=== PATIENT | female | born 1995 | race Caucasian/White ===

== ENCOUNTER 2023-12-14 12:11 | Outpatient (CLI) | payer OTHER, SELFPAY ==
[2023-12-14 12:52] LABS: Basophils Percent Auto 0.5 % (0.2-1.2); Eosinophils Absolute Auto 0.4 K/mm3 (0-0.3); Eosinophils Percent Auto 4.1 % (0-4.4); Hematocrit 36.5 % (37.0-47.0); Hemoglobin 11.3 g/dL (12.0-15.0); Immature Granulocyte Absolute 0.03 K/mm3 (0.00-0.031); Immature Granulocyte Percent A 0.3 % (0-0.5); Lymphocytes Absolute Auto 2.89 K/mm3 (0.9-3.2); Lymphocytes Percent Auto 32.8 % (18.3-44.2); Mean Corpuscular Hemoglobin 26.8 pg (26-34); Mean Corpuscular Volume 86.7 fl (80-100); Mean Platelet Volume 10.6 fl (7.4-10.4); Monocytes Absolute Auto 0.5 K/mm3 (0.1-0.6); Monocytes Percent Auto 5.3 % (2.6-8.5); Platelet Count Result 296 k/mm3 (150-375); Red Blood Count 4.21 M/mm3 (4.2-5.4); Red Cell Distribution Width 13.2 % (11.5-14.5); White Blood Count 8.8 K/mm3 (4.5-10.0)
[2023-12-14 14:59] LABS: Iron 40 ug/dL (37-170)
[2023-12-14 15:15] LABS: Percent Iron Saturation 14 % (20-50)
== END 2023-12-14 12:12 | disposition home or self-care (01) ==
LOC: ANHLAB 12:14
PROVIDERS: Visit Provider Obstetrics & Gynecology
DX: N92.0 Excessive and frequent menstruation with regular cycle (principal)
CPT/HCPCS: 36415; 82728; 83540; 83550; 84443; 85025

== ENCOUNTER 2024-08-14 09:59 | Outpatient (CLI) | payer OTHER, SELFPAY ==
[2024-08-14 10:37] LABS: Hematocrit 35.7 % (37.0-47.0); Hemoglobin 11.7 g/dL (12.0-15.0); Mean Corpuscular HGB Conc 32.8 g/dl (32-36); Mean Corpuscular Hemoglobin 27.9 pg (26-34); Mean Platelet Volume 10.6 fl (7.4-10.4); Platelet Count Result 300 k/mm3 (150-375); Red Cell Distribution Width 12.7 % (11.5-14.5); White Blood Count 9.9 K/mm3 (4.5-10.0)
[2024-08-14 10:52] LABS: Alanine Aminotransferase 17 U/L (6-35); Albumin Level 4.5 g/dL (3.5-5.1); Alkaline Phosphatase 65 U/L (38-126); Anion Gap 8 mmol/L (4-12); Aspartate Amino Transferase 29 U/L (14-36); Bilirubin,Total 0.4 mg/dL (0.2-1.3); Blood Urea Nitrogen 11 mg/dL (7-17); Calcium 9.2 mg/dL (8.4-10.2); Carbon Dioxide 29 mmol/L (22-30); Chloride 101 mmol/L (98-107); Cholesterol 210 mg/dL (0-200); Estimated Glomerular Filt Rate > 60; Glucose 90 mg/dL (65-110); HDL Direct 51 mg/dL; Potassium 3.9 mmol/L (3.4-5.0); Sodium 138 mmol/L (137-145); Triglycerides 149 mg/dL (<150)
[2024-08-14 11:03] LABS: LDL Cholesterol Direct 122 mg/dL
[2024-08-14 11:06] LABS: Iron 52 ug/dL (37-170)
[2024-08-14 11:18] LABS: Percent Iron Saturation 18 % (20-50)
[2024-08-14 11:38] LABS: Vitamin D 25 Hydroxy 27.2 ng/mL
[2024-08-14 13:04] LABS: Free T4 Free Thyroxine 0.92 ng/mL (0.78-2.19)
== END 2024-08-14 10:00 | disposition home or self-care (01) ==
PROVIDERS: PCP Nurse Practitioner Family; Visit Provider Nurse Practitioner Family
DX: N92.0 Excessive and frequent menstruation with regular cycle (principal); E66.9 Obesity, unspecified; E88.810 Metabolic syndrome; D64.9 Anemia, unspecified; E53.9 Vitamin B deficiency, unspecified; E55.9 Vitamin D deficiency, unspecified
CPT/HCPCS: 36415; 80053; 80061; 82306; 82607; 82728; 83540; 83550; 84439; 84443; 85025

== ENCOUNTER 2024-12-29 07:16 | Outpatient (CLI) | payer OTHER, SELFPAY ==
--- OUTSIDE RECORDS SUMMARY | 2024-12-29 07:19 | XMS_ITS | Referral Summary ---
[facility] Address [address] [place] [address] Care Team Providers Care Bench Worker Hollow Handle Name Role Phone Lou Ian Burt MD Primary Care Provider [phone] Patricio Saini MD Unavailable [phone] Allergies No known active allergies Medications No known medications Active Problems Problem Noted Date Diagnosed Date BMI 40.0-44.9, adult 07/04/2017 Social History Tobacco Use Types Packs/Day Years Used Date Smoking Tobacco: Never Smokeless Tobacco: Never Tobacco Cessation:Counseling Given: Not Answered Alcohol Use Standard Drinks/Week Comments No 0 (1 standard drink = 0.6 oz pur e alcohol) PHQ-2 Answer Date Recorded PHQ-2 Total Score (If total score is 3 or more points, staff should administer the PHQ-9) 0 05/10/2022 Personal Safety Answer Date Recorded Getting School Help Needed Not on file 01/27 Comments No Sex and Gender Information Value Date Recorded Sex Assigned at Not on file 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 Gender Identity Female 05/17/2019 10:27 PM CDT Sexual Orientation Straight 05/17/2019 10 :27 PM CDT Last Filed Vital Signs Vital Sign Reading Time Taken Comments Blood Pressure 126/74 02/13/2023 7:46 PM CDT Pulse 84 02/13/2023 7:46 PM CDT Temperature 37.1 C (98.8 F) 02/13/2023 7:46 PM CDT Respiratory Rate 20 02/13/2023 7:46 PM CDT Oxygen Saturation 98% 02/13/2023 7:46 PM CDT Inhaled Oxygen Concentration - - Weight 119.9 kg (264 lb 6.4 oz) 02/13/2023 7:46 PM CDT Height 165.1 cm (5' 5 ) 02/13/2023 7:46 PM CDT Body Mass Index 44 02/13/2023 7:46 PM CDT Plan of Treatment Not on file Procedures Procedure Name Priority Date/Time Associated Diagnosis Comments PAP WITH REFLEX TO HIGH RISK HPV Routine 05/10/2022 11:38 AM CDT Well woman exam from Last 3 Months or Most Recently Relevant to Health Maintenance Results * Pap with reflex to High Risk HPV (05/10/2022 11:38 AM CDT) Thin prep (Pap test) 05/10/2022 11:38 AM CDT 05/11/2022 11:38 AM CDT Narrative PATHOLOGY CH - 05/13/2022 2:19 PM CDT [facility] [address] [place] [address] Final Report Note to Patients: This report may contain a detailed description of human tissue sent by a health care provider to the laboratory for pathologic evaluation. The content of this report is essential for diagnosis and may provide important critical findings. This information may be unfamiliar to patients to review without a medical professional present. It is advised that the patient review this report in the presence of a health care provider who can answer questions and explain the details. Patient Name: THUAN RAYMUNDO Address: [address] [place] [address] Gender: F : 1995 (Age: 26) Service: Laboratory Location: Lab [facility] #: [id number] Patient Type: Ref Lab Taken: 05/10/2022 Received: 05/11/2022 Accessioned:: 05/12/2022 Reported: 05/13/2022 Physician(s): JAH Llamas NP Diagnosis: Source of Specimen: Imaged Thinprep Pap Test w/ Reflex HPV - Home Theatre Technician Cytologic Material Specimen Adequacy: - Specimen satisfactory for interpretation; endocervical/transformation zone component absent or insufficient General Category: - Negative for intraepithelial lesion or malignancy CHANDANA Rey(ASCP) Report Electronically Reviewed and Signed Out By CHANDANA Rey(ASCP) 05/13/2022 14:19:08Specimen(s) Received: A: Imaged Thinprep Pap Test w/ Reflex HPV - Home Theatre Technician Cytologic Material Clinical History: The Pap test is a screening test used to aid in the detection of cervical cancer and its precursors. It should not be the sole means by which malignant and premalignant lesions are diagnosed. Both false negative and false positive results may occur. It also has poor sensitivity for the detection of endometrial lesions and should not be used to evaluate suspected endometrial abnormalities. For these reasons it is most important to obtain Pap tests at regular intervals. The performance characteristics of some immunohistochemical stains, fluorescence in-situ hybridization tests and immunophenotyping by flow cytometry cited in this report (if any) were determined by the Surgical Pathology Department at [facility] as part of an ongoing chemistry quality control analyst program and in compliance with federally mandated regulations drawn from the Clinical Laboratory Improvement Act of 1988 (CLIA '88). Some of these tests rely on the use of analyte specific reagents and are subject to specific labeling requirements by the US Food and Drug Administration. Such diagnostic tests may only be performed in a facility that is certified by the Department of Health and Human Services as a high complexity laboratory under CLIA '88. The FDA has determined that such clearance or approval is not necessary. This test is used for clinical purposes. It should not be regarded as investigational or for research. Nevertheless, federal rules concerning the medical use of analyte specific reagents require that the following disclaimer be attached to the report: This test was developed and its performance characteristics determined by the Surgical Pathology Department [facility]. It has not been cleared or approved by the U. S. Food and Drug Administration. Ana Saavedra NP LAB CYTOLOGY ORDERABLES F inal Result PATHOLOGY [address] [place] [address] from Last 3 Months or Most Recently Relevant to Health Maintenance Insurance [employer] Address: [facility] [id number] [place] [address] [employer] Address: [address] [place] [address] [employer] Address: [facility] [address] [place] [address] Care Teams Bench Worker Hollow Handle Relationship Specialty Start Date End Date Ian Blake MD [address] [place] [address] PCP - General Internal Medicine 03/16/18 Patricio Saini MD [address] [facility] [address] [place] [address] Financial Sales Consultant Obstetrics and Gynecology 05/18/19
--- OUTSIDE RECORDS SUMMARY | 2024-12-29 07:20 | XMS_ITS | Clinical Summary ---
Author Organization [facility] Address [address] [place] [address] Care Team Providers Care Supervisor Dumping Name Role Phone Lou Ian Burt MD Primary Care Provider [phone] Patricio Saini MD Unavailable [phone] Allergies No known active allergies Medications No known medications Active Problems Problem Noted Date Diagnosed Date BMI 40.0-44.9, adult 07/04/2017 Surgical History Surgery Date Site/Laterality Comments OTHER SURGICAL HISTORY 2013 T & A Family History Medical History Relation Name Comments Thyroid disease Mother Thyroid dise ase; Diabetes Paternal Grandfather Diabete s mellitus; Ovarian cancer Paternal Grandmother Cance r, ovarian; Relation Name Status Comments Mother Paternal Grandfather Paternal Grandmother Alive Social History Tobacco Use Types Packs/Day Years [...] on file 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 Gender Identity Female 05/17/2019 10:27 PM CDT Sexual Orientation Straight 05/17/2019 10 :27 PM CDT Obstetrics History Para Term AB IAB SAB Ectopic Multiple Livin g Live Births 0 0 0 0 0 0 0 0 0 0 0 Last Filed Vital Signs Vital Sign Reading [...] 02/13/2023 7:46 PM CDT Plan of Treatment Health Maintenance Due Date Last Done Comments Hepatitis C Screening 1995 DTaP/Tdap/Td Vaccine (7 - Td or Tdap) 02/11/2016 02/10/2006, 05/19/1999, 09/08/1995, Additional history exists Cervical Cancer Screening 05/10/2023 05/10/2022, Depression Screening 05/10/2023 05/10/2022, 04/02/2021, 12/16/2017 Regular Well Visit/Exam 18-64 05/10/2023 05/10/2022, 04/02/2021, 05/18/2019 Influenza Vaccine (#1) 2024 08/07/2018, 2016 Varicella Vaccines Completed 06/09/2007, 06/11/1996 HPV Vaccines Completed 04/22/2010, 12/2008, 04/24/2008 Pneumococcal vaccine <65 Aged Out No longer eligible based on patient's age to complete this topic Procedures Procedure Name Priority Date/Time Associated Diagnosis [...] PATHOLOGY CH - 05/13/2022 2:19 PM CDT [facility] Department of Pathology [address] [place], [place] [id number] Final Report Note to Patients: This report [...] the details. Patient Name: THUAN RAYMUNDO Address: [address] [place] [address] Gender: F : 1995 (Age: 26) Service: Laboratory Location: Lab Hospital #: [id number] Patient Type: [facility] Lab Taken: 05/10/2022 Received: 05/11/2022 Accessioned:: 05/12/2022 Reported: 05/13/2022 Physician(s): JAH Llamas NP Diagnosis: Source of Specimen: Imaged Thinprep Pap Test w/ Reflex HPV - Animal Ride Manager Cytologic Material Specimen Adequacy: - Specimen satisfactory for interpretation; endocervical/transformation zone component absent or insufficient General Category: - Negative for intraepithelial lesion or malignancy CHANDANA Rey(ASCP) Report Electronically Reviewed and Signed Out By CHANDANA Rey(ASCP) 05/13/2022 14:19:08Specimen(s) Received: A: Imaged Thinprep Pap Test w/ Reflex HPV - Animal Ride Manager Cytologic Material Clinical History: The Pap test [...] determined by the Surgical Pathology Department at [facility] as part of an ongoing quality audit representative program and in compliance with federally mandated [...] characteristics determined by the Surgical Pathology Department [facility]. It has not been cleared or approved by the U. S. Food and Drug Administration. Ana Saavedra DIRECTOR OF REGIONAL SALES LAB CYTOLOGY ORDERABLES F inal Result PATHOLOGY [address] [place] [address] from Last 3 Months or Most Recently Relevant to Health Maintenance Insurance [facility] [employer] Address: [facility] [address] [place] [address] [facility] CHOICE PLUS [employer] Address: [facility] [id number] [place] [address] [employer] Address: [address] [place] [address] Care Teams Supervisor Dumping Relationship Specialty Start Date End Date Ian Blake MD [address] [place] [address] PCP - General Internal Medicine 03/16/18 Patricio Saini MD [address] [place] [address] [address] [place] [address] Oysterman Obstetrics and Gynecology 05/18/19
--- OUTSIDE RECORDS SUMMARY | 2024-12-29 07:20 | XMS_ITS | Continuity of Care Document ---
Author Organization [facility] Address [address] [place] [address] [place] [address] Phone Care Team Providers Care Mixer Slagman Name Role Phone Zen Cancino MD Unavailable Unavailable Allergies, Adverse Reactions, Alerts Substance Reaction Status Criticality No Known Allergies Active No Inform ation Medications Medication Instructions Dosage Effective Dates (start - stop) Status Comments olopatadine 0.1 % eye drops instill 1 drop by ophthalmic route 2 times every day into both eyes 1 drop - No Longer Active visine BUCCAL ADH. PATCH take one tablet daily - No Longer Active Procedures Procedure Date No Charge Optomap Fundus Photos 020 No Charge Refraction Eye Exam & Treatment Office/outpatient Visit, Est Office/outpatient Visit, Est Office/outpatient Visit, New Advance Directives Directive Yes / No Effective Date File Name No Information Encounters Encounter Description Practice Location Reason(s) For Visit Diagnoses Date Provider Providers Copied on Encounter [facility], [address] [place] [address] [address], [place], [place], [id number], [place] tel:[phone] SEC Bala GARAY Professional Complete Exam (chief complaint) Allergic conjunctivitis of both eyesCorneal neovasculariza tion of left eyeWears contact lenses 0 Barak Z[address]divar. [address], [address], [place], [place], [address], [place]. tel:[phone] Referring Provider: Zen Howe, [address], [place], [address] . tel:[phone] [place] [facility] [address] [place] [address] [address], [place], [place], [id number], tel:[phone] SEC Bala GARAY Professional 1.5 month GPC f/u (chief complaint) GPC (giant papillary conjunctivitis ) 9 Bar[address] Z[address]divar. [address], [address], [place], [place], [address], [place]. tel:[phone] Referring Provider: Zen Howe, [address] [facility] [address], [place], [address] . tel:[phone] Office/[place]pa [place]ient Visit, [facility] [address] [place] [address] [address], [place], [place], [address], tel:[phone] SEC Bala GARAY Professional Follow up visit (chief complaint) GPC (giant papillary conjunctivitis )Allergic conjunctivitis of both eyes 9 Barak Z[address]divar. [address] [employer], [facility] [place], [address], [place]. tel:[phone] Referring Provider: Zen Howe, [address] [facility], [place], [address] . tel:[phone] Office/outpa tient Visit, [facility], [address] [place] [address] [address], [place], [place], [address], [place] tel:[phone] SEC Bala [place] Professional Red, irritated eyes (chief complaint) Wears contact lensesCorneal neovasculariza tion of both eyesGPC (giant papillary conjunctivitis )Allergic conjunctivitis of both eyesPunctate keratitis, left eye 9 Bar[address] Z[address]divar. [address], [address] [place], [address], [place]. tel:[phone] Referring Provider: Zen Howe, [address] [facility] [address], [place], [address] . tel:[phone] Family History Family Member Type Diagnosis Age At Onset No Information Payers Payer name Insurance type Covered constitution party ID Christie espinoza(mati DAVIS [id number] Social History Type Description Quantity Date Captured Comments Alcohol Use Details Caffeine Use Details coffee 1 cup per day Tobacco Use Status Current non-smoker Smoking Status Never smoker Non-Smoking Tobacco Use Details : No Details Available : No Details Available Sex Female Chief Complaint And Reason For Visit From encounter dated '07/04/2020 15:00'. Complete Exam (chief complaint). Description: The 25 year old female presents for evaluation of Complete Exam in the right eye and left eye. Hx GPC OU. Pt reports GPC resolving after last visit. Pt reports still wearing her soft CLs, but she has been wearing her glasses more often. Pt does not use gtts. Reason For Referral Reason For Referral No Information Plan Of Treatment Date Type Action Status Patient Education Indue: Care Instructi ons completed Patient Education Indue: Care Instructi ons completed Patient Education Learning About Your Eye s completed Patient Education Indue: Care Instructi ons completed History Of Present Illness Encounter Date Complaint History Of Prese nt Illness Complete Exam The 25 year old female presents for evaluation of Complete Exam in the right eye and left eye. Hx GPC OU. Pt reports GPC resolving after last visit. Pt reports still wearing her soft CLs, but she has been wearing her glasses more often. Pt does not use gtts. 1.5 month GPC f/u The 24 year ol d female presents for evaluation of 1.5 month GPC f/u in the right eye and left eye. Patient states her eyes are month better still have not worn contacts. Patient done with both gtts that were prescribed. Follow up visit The 23 year old female presents for a 2 week follow up for GPC ou. Patient is using FML bid ou and Olopatadine bid ou. Patient states eyes are doing better. Patient states she hasn't worn her contacts. Red, irritated eyes The 23 year old female presents for evaluation of Red, irritated eyes in the right eye and left eye. Pt denies any past ocular injuries or Sx, OU. Pt reports she has been having irritated, watering especially in the am, red, dry like OU, x 2 wks. Pt reports she has been using Visine allergy gtts TID OU and it helps some, but now OU feels sore like she wants to close them to make them feel better. Pt reports she has had something like this happen in the past, eye dr gave gtts, and it cleared up fine. 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
[2024-12-29 09:05] LABS: Hemoglobin A1C 5.6 % (<5.7)
[2024-12-30 00:58] LABS: Progesterone <0.5 ng/mL
[2024-12-30 07:34] LABS: DHEA-Sulfate 140 mcg/dL (14-349); FSH 6.7 mIU/mL; LH 7.5 mIU/mL; Prolactin 6.9 ng/mL
[2024-12-31 18:18] LABS: Insulin Level Total 18.1 uIU/mL
[2025-01-02 20:17] LABS: Anti Mullerian Hormone,Female 2.09 ng/mL (0.69-13.39)
[2025-01-03 20:28] LABS: Testosterone Free 2.2 pg/mL (0.1-6.4); Testosterone Total 12 ng/dL (2-45)
== END 2024-12-29 07:17 | disposition home or self-care (01) ==
LOC: ANHLAB 07:17
PROVIDERS: PCP Nurse Practitioner Family; Visit Provider Obstetrics & Gynecology
DX: N92.0 Excessive and frequent menstruation with regular cycle (principal); L68.0 Hirsutism; E66.9 Obesity, unspecified
CPT/HCPCS: 36415; 82627; 82670; 83001; 83002; 83036; 83498; 83525; 83527; 84144; 84146; 84402; 84403

== ENCOUNTER 2025-01-08 14:05 | Outpatient (CLI) | payer OTHER, SELFPAY ==
--- NOTE | ~2025-01-08 | US_ITS ---
Pelvic ultrasound. Clinical History: Excessive and frequent menstruation Technique: Realtime transabdominal and transvaginal scanning of the pelvis was performed. Color flow Doppler and Doppler spectral analysis were performed. Findings: The uterus is anteverted. The endometrial stripe has a thickness of 7 mm. No focal mass is identified. The right ovary measures 3.3 x 2.6 x 2.4 cm. No significant right ovarian or adnexal mass is seen. The left ovary measures 2.4 x 2.1 x 1.9 cm. No significant left ovarian or adnexal mass is seen. There is no evidence of free fluid in the cul de sac. Impression: No significant abnormality seen. Reviewed, dictated and finalized at location . NET STRINGER Impression: No significant abnormality seen.
--- OUTSIDE RECORDS SUMMARY | 2025-01-08 16:18 | XMS_ITS | Clinical Summary ---
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 Patient Name: THUAN RAYMUNDO Address: [address] [place] [address] Gender: F : 1995 (Age: 26) Service: Laboratory Location: Lab Hospital #: [id number] Patient Type: [facility] Lab Taken: 05/10/2022 Received: 05/11/2022 Accessioned:: 05/12/2022 Reported: 05/13/2022 Physician(s): JAH Llamas NP Diagnosis: Source of Specimen: Imaged Thinprep Pap Test w/ Reflex HPV - Commercial Attorney Cytologic Material Specimen Adequacy: - Specimen satisfactory for interpretation; endocervical/transformation zone component absent or insufficient General Category: - Negative for intraepithelial lesion or malignancy CHANDANA Rey(ASCP) Report Electronically Reviewed and Signed Out By CHANDANA Rey(ASCP) 05/13/2022 14:19:08Specimen(s) Received: A: Imaged Thinprep Pap Test w/ Reflex HPV - Commercial Attorney Cytologic Material Clinical History: The Pap test [...] determined by the Surgical Pathology Department at [facility] as part of an ongoing quality systems manager program and in compliance with federally mandated [...] characteristics determined by the Surgical Pathology Department [facility]. It has not been cleared or approved by the U. S. Food and Drug Administration. Ana Saavedra JUDICIAL LAW CLERK LAB CYTOLOGY ORDERABLES F inal Result PATHOLOGY [address] [place] [address] from Last 3 Months or Most Recently Relevant to Health Maintenance Insurance [facility] [employer] Address: [facility] [address] [place] [address] [address] [facility] CHOICE PLUS [facility] H[facility]/PPO Address: [address] [address] [place] [address] [employer] [facility] [employer] Address: [facility] [address] [place] [address] [employer] [facility] [employer] Address: [address] [place] [address] Care Teams Exercise Teacher Relationship Specialty Start Date End Date Ian Blake MD [address] [place] [address] PCP - General Internal Medicine 03/16/18 Patricio Saini MD [address] [place] [address] [address] [place] [address] Pen And Pencil Repairer Obstetrics and Gynecology 05/18/19
--- OUTSIDE RECORDS SUMMARY | 2025-01-08 16:18 | XMS_ITS | Referral Summary ---
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 Patient Name: THUAN RAYMUNDO Address: [address] [place] [address] Gender: F : 1995 (Age: 26) Service: Laboratory Location: Lab [facility] #: [id number] Patient Type: Ref Lab Taken: 05/10/2022 Received: 05/11/2022 Accessioned:: 05/12/2022 Reported: 05/13/2022 Physician(s): JAH Llamas NP Diagnosis: Source of Specimen: Imaged Thinprep Pap Test w/ Reflex HPV - Baggage Agent Supervisor Cytologic Material Specimen Adequacy: - Specimen satisfactory for interpretation; endocervical/transformation zone component absent or insufficient General Category: - Negative for intraepithelial lesion or malignancy CHANDANA Rey(ASCP) Report Electronically Reviewed and Signed Out By CHANDANA Rey(ASCP) 05/13/2022 14:19:08Specimen(s) Received: A: Imaged Thinprep Pap Test w/ Reflex HPV - Baggage Agent Supervisor Cytologic Material Clinical History: The Pap test [...] [facility] an ongoing cloth tester quality program and in compliance with federally mandated [...] characteristics determined by the Surgical Pathology Department [facility]. It has not been cleared or approved by the U. S. Food and Drug Administration. Ana Saavedra NP LAB CYTOLOGY ORDERABLES F inal Result PATHOLOGY [address] [place] [address] from Last 3 Months or Most Recently Relevant to Health Maintenance Insurance [employer] Address: [facility] [id number] [place] [address] [employer] Address: [address] [place] [address] [employer] Address: [facility] [id number] [place] [address] Care Teams Coke Handling Supervisor Relationship Specialty Start Date End Date Ian Blake MD [address] [place] [address] PCP - General Internal Medicine 03/16/18 Patricio Saini MD [address] [facility] [address] [place] [address] Heel Cover Softener Obstetrics and Gynecology 05/18/19
== END 2025-01-08 14:06 | disposition home or self-care (01) ==
PROVIDERS: Visit Provider Obstetrics & Gynecology
DX: N92.0 Excessive and frequent menstruation with regular cycle (principal)
CPT/HCPCS: 76830; 76856